=== PATIENT | female | born 1955 | race African-American/Black ===

== ENCOUNTER 2017-01-22 14:13 | Emergency (ER) | payer MEDICARE ==
[~2017-01-22] VITALS: Ht 167.6 cm; Wt 65.0 kg
[2017-01-22 19:19] VITALS: BP 129/78
== END 2017-01-22 19:20 | disposition home or self-care (01) ==
LOC: ER 14:59
DX: J06.9 Acute upper respiratory infection, unspecified (principal); H57.8 Other specified disorders of eye and adnexa; F12.10 Cannabis abuse, uncomplicated
CPT/HCPCS: 99283

== ENCOUNTER 2017-08-19 10:56 | Emergency (ER) | payer MEDICARE ==
[~2017-08-19] VITALS: Ht 167.6 cm; Wt 65.8 kg
[2017-08-19 11:08] VITALS: BP 151/95
== END 2017-08-19 13:11 | disposition home or self-care (01) ==
LOC: ER 11:16
DX: H66.90 Otitis media, unspecified, unspecified ear (principal); J06.9 Acute upper respiratory infection, unspecified; I10 Essential (primary) hypertension; F17.200 Nicotine dependence, unspecified, uncomplicated; F12.10 Cannabis abuse, uncomplicated
CPT/HCPCS: 71045; 99283

== ENCOUNTER 2021-06-14 14:58 | Emergency (ER) | payer MEDICAID, MEDICARE ==
[~2021-06-14] VITALS: Ht 167.6 cm; Wt 66.0 kg
[2021-06-14 15:05] VITALS: BP 139/79
[2021-06-14] MEDS ORDERED: ALBU6.7H15 INH (20:54)
[2021-06-14] MEDS ORDERED: P50 MT (20:54)
[2021-06-14] MEDS ORDERED: AZIT250T12 MT (20:54)
== END 2021-06-14 21:11 | disposition home or self-care (01) ==
LOC: ER 14:58
DX: J45.909 Unspecified asthma, uncomplicated (principal); R00.0 Tachycardia, unspecified; I10 Essential (primary) hypertension; Z90.49 Acquired absence of other specified parts of digestive tract; Z90.710 Acquired absence of both cervix and uterus; Z91.013 Allergy to seafood
CPT/HCPCS: 71045; 93005; 99283

== ENCOUNTER 2022-07-14 10:39 | Emergency (ER) | payer OTHER, MEDICAID ==
[~2022-07-14] VITALS: Ht 167.6 cm; Wt 64.0 kg
[~2022-07-14 10:39] MED LIST: ALBU6.7H15 INH; AZIT250T12 MT; P50 MT
[2022-07-14 12:15] VITALS: BP 120/90
[2022-07-14] MEDS ORDERED: HYDROCODONE/ACETAMINOPHEN 5/325MG TABLET PO ONE (12:15)
[2022-07-14] MEDS ORDERED: ONDANSETRON 4MG ODT PO ONE (12:15)
[2022-07-14] MEDS ORDERED: HYDR-4001 MT (12:43)
[2022-07-14] MEDS ORDERED: IBUP-2029 MT (12:43)
== END 2022-07-14 13:33 | disposition home or self-care (01) ==
LOC: ER 10:39
DX: S89.91XA Unspecified injury of right lower leg, initial encounter (principal); W18.39XA Other fall on same level, initial encounter; Y93.89 Activity, other specified; Y92.89 Other specified places as the place of occurrence of the external cause; Y99.8 Other external cause status; E78.00 Pure hypercholesterolemia, unspecified; I10 Essential (primary) hypertension; Z90.49 Acquired absence of other specified parts of digestive tract; Z90.710 Acquired absence of both cervix and uterus; F12.10 Cannabis abuse, uncomplicated
CPT/HCPCS: 71250; 73562; 99284; Q0162